=== PATIENT | female | born 1955 | race Caucasian/White ===

== ENCOUNTER → 2017-01-09 | Outpatient (CLI) | payer BC ==
--- NOTE | 2017-01-09 19:51 | CT ---
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 Exam: CT scan of the left femur without contrast. Technique: Axial spiral images were obtained from the level above the left acetabulum through the dis mann left knee without contrast and reconstructed at 2 mm intervals with coronal and sagittal multipla bowen reconstructions performed. Findings: There is mild joint space narrowing in left hip. No fracture or dislocation is seen. There is no periosteal reaction. The surrounding musculature is intact proximal . There is mild linear and irregular stranding in the subcutaneous fat along the anterior aspect of the upper mid thigh anterior ly along the anterior compartment which extends inferiorly along the fascia of the anterior compartme nt extends into the subcutaneous soft tissues and adjacent skin surface inferiorly . No focal fluid c ollection or obvious mass is seen . The underlying deep musculature appears intact and normal density throughout. There is no adenopathy is seen in the inguinal region. The bones are well mineralized wi th no lytic or blastic lesion. There is mild joint space narrowing throughout the knee . Impression: Mild thickening of the underlying muscular fascia and associated linear stranding seen in the adjacen t subcutaneous soft tissues along the upper thigh and extending inferiorly along the anterior compart ment which probably represents postop scarring and/ or edema in the area with no focal fluid collecti on or obvious mass seen. The exam is limited due to the lack of IV contrast . If there is persistent clinical concern for residual or recurrent tumor in the area, suggest a followup study to assure stab ility or MRI with contrast for further characterization of the area. No acute bony abnormality is seen. Reported By:
== END ==
LOC: RAD 14:49
PROVIDERS: ATTEND Internal Medicine
DX: Z85.831 Personal history of malignant neoplasm of soft tissue (principal)
CPT/HCPCS: 73700

== ENCOUNTER 2017-04-22 14:28 | Emergency (ER) | payer BC ==
[2017-04-22 14:35] VITALS: BMI 32.5
[2017-04-22] MEDS ORDERED: NS 1000 ML 1,000 ML ONE ×2 (14:35→18:09)
--- NOTE | 2017-04-22 14:43 | DR.GENAD ---
HPI - PCP Primary Care Physician: ALFA BERMUDEZ - HPI Comment HPI Comment: PATIENT WITH LOW BP IN ED AND SLIGHTLY SLEEPY. SHE WAKE UP AND ANSWER QUESTIONS AND FOLLOW DIRECTION. NO FEVER. BLOOD GLUCOSE WAS NOT LOW. - Complaint/Symptoms Chief Complaint Doctors Comments: SYNCOPAL EPISODE, LOW BP AND DIZZINESS NOTED TODAY. Chief Complaint:: EMS OUT TO PT WITH LOW BS AND UPON ARRIVAL PT GIVEN HONEY AND EMS CHECKED PTS BS AND IT WAS 345,,, PT C/O BEING DIZZY AND HER B/P WAS 90/48.. PT IS DROWSY AND PT STATES SHE TOOK A MUSCLE RELAXE THIS AM.. PT DENIES ANY PAIN PT STATES SHE FELT LIKE SHE WAS GOING TO PASS OUT THIS AM ".. - Nurses notes reviewed Nurses Notes Review: Yes - Source History Provided: Patient, EMS - Mode of Arrival Mode of Arrival: EMS - Timing Onset of Chief Complaint: 04/22/17 Came on: Suddenly - Duration Duration: Since Onset Duration: Minutes - Severity Severity: Moderate PMH - PMH Past Medical History: Yes Past Medical History: Hypertension Past Medical History Comment: FIBRO Past Surgical History: Yes - Family History History of Family Medical Conditions: No - Social History Does patient currently use any type of tobacco product: No Have you used tobacco products in the last 12 months: No Type of Tobacco Use: None Does any household member use tobacco: No Alcohol Use: None Do you use any recreational Drugs:: No Lives Where: Home - infectious screening In the last 2 months have you had wt loss of >10#?: NO Have you had fever, night sweats or hemotysis?: No Have you traveled outside the country in the last 6 months?: No Isolation: Standard ROS - Review of Systems Constitutional: Weakness, Fatigue. negative: Chills, Fever Eyes: negative: Eye Pain, Discharge ENTM: negative: Ear Pain, Nose Discharge, Nose Congestion, Throat Pain Respiratoy: negative: Productive Cough, Non-Productive Cough, Short of Breath, Wheezing, Hemoptysis Cardiovascular: Syncope. negative: Chest Pain, Edema Gastrointestinal/Abdominal: negative: Abdominal Pain, Diarrhea, Nausea, Vomiting Genitourinary: negative: Dysuria, Frequency, Hematuria Neurological: Headache, Weakness, Dizziness Musculoskeletal: Muscle Pain Integumentary: No Symptoms Reported Hematologic/Lymphatic: No Symptoms Reported Endocrine: No Symptoms Reported. negative: Flushing, Increased Thirst, Increased Urine All Other Systems: Reviewed and Negative PE - Vital Signs Vitals: Temperature 96.9 F Pulse Rate [Left Brachial] 80 Pulse Rate 94 Respiratory Rate 16 Blood Pressure [Left Arm] 155/87 Blood Pressure 84/75 O2 Sat by Pulse Oximetry 97 - General Limitations: No Limitations General Appearance: Alert - Head Head Exam: Normal Inspection - Eyes Eye exam: Normal Appearance - ENT ENT Exam: Normal External Ear Exam External Ear Exam: Normal External Inspection TM/Canal Exam: Bilateral Normal Nose Exam: Normal Nose Exam Mouth Exam: Normal Inspection Throat Exam: Normal Inspection - Neck Neck Exam: Trachea Midline - Chest Chest Inspection: Symmetric Chest Wall Rise - Respiratory Respiratory Exam: Normal Lung Sounds Bilat Respiratory Exam: Bilateral Clear to Auscultation - Cardiovascular Cardiovascular Exam: Regular Rate, Normal Rhythm, Normal Heart Sounds - Abdominal Exam Abdominal Exam: Normal Bowel Sounds, Soft. negative: Tenderness - Extremities Extremities Exam: Normal Inspection - Back Back Exam: Normal Inspection - Neurologic Neurological Exam: Alert, Oriented X3, CN II-XII Intact, Other (SLIGHTLY SLEEPY. ). negative: Motor Sensory Deficit - Psychiatric Psychiatric Exam: Normal Affect, Normal Mood - Skin Skin Exam: Dry, Normal Color, Erythema MDM - Additional Information Additional Information Obtained From: Family - Differential Diagnosis Differential Diagnosis: SYNCOPE, HYPOTENSION, DIZZINESS, AMS Course - Treatment Treatment: SEE ORDERS. - Education/Counseling Education/Counseling: Patient, Family, Education Educated On: Diagnosis, Needs for Follow Up ROR - Labs Reviewed Laboratory Results Reviewed?: Yes Result Diagrams: 04/22/17 16:00 04/22/17 16:00 Laboratory: WBC 8.1 X10^3/uL (3.6-10.0) 04/22/17 16:00 RBC 3.95 X10^6/uL (3.5-5.4) 04/22/17 16:00 Hgb 12.1 g/dL (12.0-16.0) 04/22/17 16:00 Hct 35.7 % (36.0-47.0) L 04/22/17 16:00 MCV 90.4 fL (80.0-100.0) 04/22/17 16:00 MCH 30.6 pg (27.0-34.0) 04/22/17 16:00 MCHC 33.8 g/dL (33.0-35.0) 04/22/17 16:00 RDW 12.6 % (11.6-16.5) 04/22/17 16:00 Plt Count 183 X10^3/uL (150.0-450.0) 04/22/17 16:00 MPV 8.7 fL (7.4-11.0) 04/22/17 16:00 Neut % 58.1 % (42.0-75.0) 04/22/17 16:00 Lymph % 29.7 % (21.0-51.0) 04/22/17 16:00 [place] % 11.3 % (0.0-13.0) 04/22/17 16:00 Eos % 0.6 % (0.9-2.9) L 04/22/17 16:00 Baso % 0.3 % (0.2-1.0) 04/22/17 16:00 Neut # 4.7 x10^3/uL (2.2-4.8) 04/22/17 16:00 Lymph # 2.4 X10^3/uL (1.3-2.9) 04/22/17 16:00 [place] # 0.9 x10^3/uL (0.3-0.8) H 04/22/17 16:00 Eos # 0.1 x10^3/uL (0.0-0.2) 04/22/17 16:00 Baso # 0.0 X10^3/uL (0.0-0.1) 04/22/17 16:00 Absolute Nucleated RBC 0.1 /100WBC 04/22/17 16:00 Sodium 142 mmol/L (136-145) 04/22/17 16:00 Corrected Sodium 142 mmol/L (136-145) 04/22/17 16:00 Potassium 3.3 mmol/L (3.5-5.1) L 04/22/17 16:00 Chloride 108 mmol/L (98-107) H 04/22/17 16:00 Carbon Dioxide 23.9 mmol/L (21-32) 04/22/17 16:00 BUN 21 mg/dL (7-18) H 04/22/17 16:00 Creatinine 1.24 mg/dL (0.55-1.02) H 04/22/17 16:00 Est GFR (MDRD) Af Amer 56 (>60) L 04/22/17 16:00 Est GFR (MDRD) Non-Af 47 (>60) L 04/22/17 16:00 Glucose 120 mg/dL (65-99) H 04/22/17 16:00 Calcium 7.6 mg/dL (8.5-10.1) L 04/22/17 16:00 Corrected Calcium 8.6 mg/dL (8.5-10.1) 04/22/17 16:00 Total Bilirubin 0.20 mg/dL (0.2-1.0) 04/22/17 16:00 AST 47 Units/L (15-37) H 04/22/17 16:00 ALT 39 Units/L (12-78) 04/22/17 16:00 Alkaline Phosphatase 46 Units/L (46-116) 04/22/17 16:00 Creatine Kinase 828 Units/L (26-192) H 04/22/17 19:23 CK-MB (CK-2) 10.3 ng/mL (0-4.0) H* 04/22/17 19:23 CK/CKMB % Calc 1.2 % (<4) 04/22/17 19:23 Troponin I < 0.02 ng/mL (0-1.5) 04/22/17 19:23 B-Natriuretic Peptide 7.3 pg/mL (0-79) 04/22/17 16:00 Total Protein 5.8 g/dL (6.4-8.2) L 04/22/17 16:00 Albumin 2.8 g/dL (3.4-5.0) L 04/22/17 16:00 Globulin 3.0 g/dL (2.5-4.5) 04/22/17 16:00 Albumin/Globulin Ratio 0.9 Ratio (1.1-2.1) L 04/22/17 16:00 Acetone, Semi-Quant Negative (NEGATIVE) 04/22/17 16:00 - XRAY XRAY Interpreted by: Radiologist XRAY Findings: REPORT DISCUSS WITH PATIENT. - Diagnosis Discharge Problem: Dizziness Rhabdomyolysis Qualifiers: Rhabdomyolysis type: non-traumatic Qualified Code(s): M62.82 - Rhabdomyolysis Syncope Qualifiers: Syncope type: unspecified Qualified Code(s): R55 - Syncope and collapse Hypotension Qualifiers: Hypotension type: unspecified hypotension type Qualified Code(s): I95.9 - Hypotension, unspecified - Discharge Plan Disposition: 01 HOME, SELF-CARE Condition: Stable - Follow ups/Referrals Follow ups/Referrals: Rigo Antony [Primary Care Provider] - 04/23/17 - Instructions Instructions: Rhabdomyolysis, Hypotension, [id number], Dizziness, Easy-to- Read, Syncope, [id number] Additional Instructions: RETURN TO ED IF WORSE.
[2017-04-22] MEDS ORDERED: NS 1000 ML 1,000 ML IV ONE ×2 (14:58→17:54)
[2017-04-22 16:08] LABS: BASOPHILS % (AUTO) 0.3 % (0.2-1.0); EOSINOPHILS # (AUTO) 0.1 x10^3/uL (0.0-0.2); EOSINOPHILS % (AUTO) 0.6 % (0.9-2.9); HEMATOCRIT 35.7 % (36.0-47.0); HEMOGLOBIN 12.1 g/dL (12.0-16.0); LYMPHOCYTES # (AUTO) 2.4 X10^3/uL (1.3-2.9); LYMPHOCYTES % (AUTO) 29.7 % (21.0-51.0); MEAN CORPUSCULAR HEMOGLOBIN 30.6 pg (27.0-34.0); MEAN CORPUSCULAR HGB CONC 33.8 g/dL (33.0-35.0); MEAN CORPUSCULAR VOLUME 90.4 fL (80.0-100.0); MEAN PLATELET VOLUME 8.7 fL (7.4-11.0); MONOCYTES # (AUTO) 0.9 x10^3/uL (0.3-0.8); MONOCYTES % (AUTO) 11.3 % (0.0-13.0); NEUTROPHILS # (AUTO) 4.7 x10^3/uL (2.2-4.8); NEUTROPHILS % (AUTO) 58.1 % (42.0-75.0); PLATELET COUNT 183 X10^3/uL (150.0-450.0); RED BLOOD COUNT 3.95 X10^6/uL (3.5-5.4); RED CELL DISTRIBUTION WIDTH 12.6 % (11.6-16.5); WHITE BLOOD COUNT 8.1 X10^3/uL (3.6-10.0)
[2017-04-22 16:24] LABS: BLOOD UREA NITROGEN 21 mg/dL (7-18); CALCIUM 7.6 mg/dL (8.5-10.1); CARBON DIOXIDE 23.9 mmol/L (21-32); CHLORIDE 108 mmol/L (98-107); COR NA(FOR HYPERGLY) 142 mmol/L (136-145); CREATININE 1.24 mg/dL (0.55-1.02); SODIUM 142 mmol/L (136-145); TROPONIN I < 0.02 ng/mL (0-1.5); eGFR BLACK RACES 56 (>60); eGFR NON BLACK RACES 47 (>60)
[2017-04-22 16:44] LABS: B-TYPE NATRIURETIC PEPTIDE 7.3 pg/mL (0-79)
[2017-04-22 16:46] LABS: ALANINE AMINOTRANSFERASE 39 Units/L (12-78); ALBUMIN 2.8 g/dL (3.4-5.0); ALKALINE PHOSPHATASE 46 Units/L (46-116); ASPARTATE AMINO TRANSFERASE 47 Units/L (15-37); CKMB % 1.4 % (<4); COR CA(FOR HYPOALB) 8.6 mg/dL (8.5-10.1); CREATINE KINASE 758 Units/L (26-192); TOTAL PROTEIN 5.8 g/dL (6.4-8.2)
[2017-04-22 16:51] LABS: CREATINE KINASE MB 10.5 ng/mL (0-4.0); SERUM ACETONE NEGATIVE (NEGATIVE)
--- NOTE | 2017-04-22 19:24 | CT ---
HISTORY: Hypoglycemia, altered mental status Study: CT brain without contrast Comparison: None Technique: Multiple axial images of the brain were obtained from the skull base to the vertex without administra tion of IV contrast. Automated exposure control (AEC) was utilized to adjust the MA and/or kV accordi ng to patient size. Findings: There is no acute intracranial hemorrhage. The brain parenchyma is normal in density. No mass or ma ss effect. No abnormal extra-axial fluid collection. The ventricles are normal in size, shape and position. Basilar cisterns patent. El matter -white m atter interface is distinct. The bilateral mastoid air cells and included paranasal sinuses are predominantly clear. There is no acute osseous abnormality. IMPRESSION: 1. No acute intracranial process can be identified. Reported By:
[2017-04-22] MEDS ORDERED: POTASSIUM CHLORIDE LIQ 20 MEQ UDC PO ONE (19:30)
[2017-04-22 20:18] LABS: CKMB % 1.2 % (<4); CREATINE KINASE 828 Units/L (26-192); TROPONIN I < 0.02 ng/mL (0-1.5)
[2017-04-22 20:22] LABS: CREATINE KINASE MB 10.3 ng/mL (0-4.0)
[2017-04-22 21:28] VITALS: BP 155/87
== END 2017-04-22 21:15 | disposition home or self-care (01) ==
LOC: ER 14:28
DX: R42 Dizziness and giddiness (principal); M62.82 Rhabdomyolysis; R55 Syncope and collapse; I95.9 Hypotension, unspecified
CPT/HCPCS: 36415; 70450; 80053; 82009; 82550; 82553; 83880; 84484; 85025; 96365; 96367; 99283; 99284; A4222

== ENCOUNTER 2017-09-20 21:45 | Emergency (ER) | payer BC ==
[2017-09-20 21:53] VITALS: BP 186/80; BMI 28.3
== END 2017-09-20 23:30 | disposition left against medical advice (07) ==
LOC: ER 21:56
DX: R10.11 Right upper quadrant pain (principal)
CPT/HCPCS: 99281

== ENCOUNTER 2023-01-01 16:51 | Observation (INO) ==
[2023-01-01] MEDS ORDERED: CONSULT PHARMACY - POTASSIUM & MAGNESIUM XX SCH (19:00)
[2023-01-01] MEDS: NS 1,000 ML IV 1,000 ML IV SCH (19:00)
[2023-01-01] MEDS ORDERED: PEPCID 20 MG VIAL 20 MG in NS 50 ML IV 50 ML IV SCH (19:00)
[2023-01-01 19:16] LABS: BASOPHILS # (AUTO) 0.1 X10^3/uL (0.0-0.1); EOSINOPHILS # (AUTO) 0.1 x10^3/uL (0.0-0.2); EOSINOPHILS % (AUTO) 0.8 % (0.9-2.9); HEMATOCRIT 40.1 % (36.0-47.0); HEMOGLOBIN 13.2 g/dL (12.0-16.0); LYMPHOCYTES # (AUTO) 2.5 X10^3/uL (1.3-2.9); LYMPHOCYTES % (AUTO) 27.8 % (21.0-51.0); MEAN CORPUSCULAR HEMOGLOBIN 29.2 pg (27.0-34.0); MEAN CORPUSCULAR VOLUME 88.4 fL (80.0-100.0); MONOCYTES % (AUTO) 10.7 % (0.0-13.0); NEUTROPHILS # (AUTO) 5.4 x10^3/uL (2.2-4.8); NEUTROPHILS % (AUTO) 59.7 % (42.0-75.0); PLATELET COUNT 259 X10^3/uL (150.0-450.0); RED BLOOD COUNT 4.53 X10^6/uL (3.5-5.4); RED CELL DISTRIBUTION WIDTH 13.5 % (11.6-16.5); WHITE BLOOD COUNT 9.1 X10^3/uL (3.6-10.0)
[2023-01-01 19:24] LABS: ALANINE AMINOTRANSFERASE 48 Units/L (12-78); ALBUMIN 3.8 g/dL (3.4-5.0); ALKALINE PHOSPHATASE 53 Units/L (46-116); AMYLASE 63 Units/L (25-115); ASPARTATE AMINO TRANSFERASE 35 Units/L (15-37); BLOOD UREA NITROGEN 18 mg/dL (7-18); CALCIUM 9.4 mg/dL (8.5-10.1); CARBON DIOXIDE 22.7 mmol/L (21-32); CHLORIDE 100 mmol/L (98-107); CREATININE 1.28 mg/dL (0.55-1.02); GLUCOSE 102 mg/dL (65-99); LIPASE 132 Units/L (73-393); POTASSIUM 3.3 mmol/L (3.5-5.1); SODIUM 138 mmol/L (136-145); TOTAL PROTEIN 7.7 g/dL (6.4-8.2); eGFR NON BLACK RACES 44 (>60)
[2023-01-01] MEDS ORDERED: PROVENTIL NEB TX 0.083% 2.5MG/ 3ML NEB PRN (19:25)
[2023-01-01 20:06] VITALS: BMI 26.7
[2023-01-01] MEDS ORDERED: NS + KCL 40 MEQ/L 1,000 ML IV SCH (21:00)
[2023-01-01] MEDS: MORPHINE SULFATE INJ 2 MG INJ IVP PRN (21:30)
[2023-01-01] MEDS: PROTONIX INJ 40 MG VIAL IVP SCH (21:31)
--- NOTE | 2023-01-01 22:33 | RAD ---
HISTORYAbdominal painSTUDYACUTE ABDOMEN SERIES with chest radiographCOMPARISONCT of the abdomen December 30, 2022FINDINGSMidline trachea. Prominent heart size. The lungs are grossly clear. The bowel gas pattern is nonobstructed. Hiatal hernia is present. No free air.IMPRESSIONNothing acuteElectronically signed by: Mega Basurto (Jan 01, 2023 22:32:27)
[2023-01-02] MEDS: NS 1,000 ML IV 1,000 ML IV SCH (01:38)
[2023-01-02] MEDS ORDERED: TYLENOL 325 MG TAB PO PRN (01:41)
[2023-01-02 05:14] LABS: BASOPHILS % (AUTO) 0.4 % (0.2-1.0); EOSINOPHILS # (AUTO) 0.1 x10^3/uL (0.0-0.2); EOSINOPHILS % (AUTO) 1.2 % (0.9-2.9); HEMATOCRIT 34.1 % (36.0-47.0); HEMOGLOBIN 11.6 g/dL (12.0-16.0); LYMPHOCYTES # (AUTO) 2.2 X10^3/uL (1.3-2.9); LYMPHOCYTES % (AUTO) 28.6 % (21.0-51.0); MEAN CORPUSCULAR HEMOGLOBIN 29.8 pg (27.0-34.0); MEAN CORPUSCULAR VOLUME 87.6 fL (80.0-100.0); MEAN PLATELET VOLUME 9.5 fL (7.4-11.0); MONOCYTES # (AUTO) 0.9 x10^3/uL (0.3-0.8); MONOCYTES % (AUTO) 11.9 % (0.0-13.0); NEUTROPHILS # (AUTO) 4.4 x10^3/uL (2.2-4.8); NEUTROPHILS % (AUTO) 57.9 % (42.0-75.0); PLATELET COUNT 238 X10^3/uL (150.0-450.0); RED CELL DISTRIBUTION WIDTH 13.8 % (11.6-16.5); WHITE BLOOD COUNT 7.6 X10^3/uL (3.6-10.0)
[2023-01-02] MEDS: MORPHINE SULFATE INJ 2 MG INJ IVP PRN (05:18)
[2023-01-02 05:31] LABS: ALANINE AMINOTRANSFERASE 39 Units/L (12-78); ALBUMIN 3.1 g/dL (3.4-5.0); ALKALINE PHOSPHATASE 44 Units/L (46-116); ASPARTATE AMINO TRANSFERASE 24 Units/L (15-37); BLOOD UREA NITROGEN 16 mg/dL (7-18); CALCIUM 8.5 mg/dL (8.5-10.1); CARBON DIOXIDE 22.8 mmol/L (21-32); CHLORIDE 106 mmol/L (98-107); COR CA(FOR HYPOALB) 9.2 mg/dL (8.5-10.1); CREATININE 1.07 mg/dL (0.55-1.02); GLUCOSE 79 mg/dL (65-99); POTASSIUM 3.6 mmol/L (3.5-5.1); SODIUM 141 mmol/L (136-145); TOTAL PROTEIN 6.3 g/dL (6.4-8.2); eGFR NON BLACK RACES 54 (>60)
[2023-01-02] MEDS ORDERED: CONSULT PHARMACY - POTASSIUM & MAGNESIUM XX SCH (07:00)
[2023-01-02] MEDS: NS + KCL 20 MEQ/L 1,000 ML with MAGNESIUM SULFATE 50% INJ VIAL 1 G IV SCH ×4 (08:14→20:51)
[2023-01-02] MEDS: PEPCID 20 MG VIAL 20 MG in NS 50 ML IV 50 ML IV SCH (08:14)
[2023-01-02] MEDS: PROTONIX INJ 40 MG VIAL IVP SCH ×2 (08:15→20:46)
[2023-01-02] MEDS ORDERED: VOLTAREN 1 % GEL MULTI DOSE TUBE TOP PRN (08:56)
[2023-01-02] MEDS ORDERED: ZOFRAN TAB 4 MG PO PRN (08:56)
[2023-01-02] MEDS ORDERED: VENTOLIN or PROAIR HFA IN PRN (08:56)
[2023-01-02] MEDS ORDERED: TYLENOL #3 TAB (W/CODEINE) PO PRN (08:56)
[2023-01-02] MEDS ORDERED: PATIENT'S HOME MEDICATION (Fluticasone-Umeclidin-Vilanter [Trelegy Ellipta] 100-62.5-25 mc IN SCH (09:00)
[2023-01-02] MEDS ORDERED: K-DUR TAB 20 MEQ PO SCH (09:00)
[2023-01-02] MEDS ORDERED: MAG-OX TAB PO SCH (09:00)
[2023-01-02] MEDS ORDERED: PERCOCET TAB 5/325 MG PO PRN (10:21)
[2023-01-02] MEDS: LOPRESSOR TAB 50 MG PO SCH ×2 (10:30→20:46)
[2023-01-02] MEDS: COZAAR PO SCH (10:30)
[2023-01-02] MEDS: NEURONTIN CAP 400 MG PO SCH ×4 (10:31→20:45)
[2023-01-02] MEDS: HYDROCHLOROTHIAZIDE 25 MG TAB PO SCH (10:31)
[2023-01-02] MEDS: SYNTHROID 50 mcg TAB PO SCH (10:31)
[2023-01-02] MEDS: LOVENOX INJ 40 MG SYR SC SCH (10:32)
[2023-01-02] MEDS: MIRALAX POWDER (1 DOSE 17 G) PO SCH (10:32)
[2023-01-02 10:45] LABS: BILIRUBIN,URINE NEGATIVE (NEGATIVE); BLOOD/HEMOGLOBIN,URINE NEGATIVE (NEGATIVE); GLUCOSE, URINE NEGATIVE (NEGATIVE); KETONES,URINE 3+ (NEGATIVE); LEUKOCYTE ESTERASE ,URINE NEGATIVE (NEGATIVE); NITRITES,URINE NEGATIVE (NEGATIVE); PROTEIN,URINE NEGATIVE (NEGATIVE); UROBILINOGEN,URINE NORMAL (NORMAL)
[2023-01-02 10:47] LABS: APPEARANCE,URINE CLEAR (CLEAR); COLOR,URINE YELLOW (YELLOW)
--- NOTE | 2023-01-02 12:22 | DR.UPDATE ---
H&P Update Prescription drug monitoring program results: PDMP reviewed and no concerns identified H&P Reviewed: Yes Any changes to H&P?: Yes Changes noted:: WAS ADMITTED TO THE HOSPITAL, OBSERVATION STATUS, FOR FURTHER EVALUATION AND TREATMENT OF INTRACTABLE ABDOMINAL PAIN. SHE HAS BEEN TO THE ER TWICE SINCE 12/19/22. ON 12/30/22, AN ABDOMEN/PELVIS CT WITHOUT CONTRAST WAS OBTAINED AND REVEALED: The moderate-sized central sliding hiatal hernia is noted to be present. Otherwise, unremarkable evaluation of the abdomen and pelvis without contrast. SHE DENIES IMPROVEMENT IN SYMPTOMS SINCE HER LAST ER VISIT. ON ARRIVAL TO THE HOSPITAL, HER VITALS WERE: 98.3-80-15-97%-183/83. LABS WERE OBTAINED. WBC 9.1, RBC 4.53, HGB 13.2, HCT 40.1, PLT COUNT 259, SODIUM 138, POTASSIUM 3.3, CHLORIDE 100, CARBON DIOXIDE 22.7, BUN 18, CREATININE 1.28, GLUCOSE 102, CALCIUM 9.4, MAGNESIUM 1.8, TOTAL BILI 0.40, AST 35, ALT 48, ALK PHOS 53, TOTAL PROTEIN 7.7, ALBUMIN 3.8, AMYLASE 63, LIPASE 132. A URINALYSIS WAS OBTAINED AND WAS UNREMARKABLE. A URINE CULTURE WAS SET UP. AN ABDOMEN XRAY WAS OBTAINED AND WAS UNREMARKABLE. SHE WAS STARTED ON NORMAL SALINE WITH POTASSIUM AND MAGNESIUM AT 80 ML/HR, PEPCID 20MG DAILY, PROTONIX 40MG IV BID, LOVENOX 40MG SC DAILY, AND MORPHINE SULFATE 2MG IV Q4H PRN PAIN. HER HOME MEDICATIONS OF TYLENOL WITH CODEINE, PROAIR INHALER, VOLTAREN GEL, NEURONTIN, HCTZ, SYNTHROID, COZAAR, MECLIZINE, LOPRESSOR, ZOFRAN, PERCOCET, MIRALAX, POTASSIUM CHLORIDE, CARAFATE, AND ZANAFLEX WERE RESUMED. WE WILL CONSULT , GENERAL SURGEON. OTHERWISE, WE WILL FOLLOW UP WITH AM LABS AND CONTINUE TO MONITOR. TIME SPENT ON CLINICAL ASSESSMENT, REVIEWING LABS AND IMAGING, DECISION MAKING, AND DOCUMENTATION GREATER THAN 75 MINUTES. Patient was examined?: Yes
[2023-01-02] MEDS: CARAFATE PO SCH ×3 (12:53→20:46)
[2023-01-02] MEDS: ZANAFLEX PO SCH (20:45)
[2023-01-02] MEDS: ANTIVERT TAB 25 MG PO SCH (20:46)
[2023-01-02] MEDS: LIPITOR TAB 10 MG PO SCH (20:46)
[2023-01-02] MEDS: PULMICORT NEB TX 0.5 MG NEB SCH (21:40)
[2023-01-02] MEDS: DUONEB 0.5 MG/3 MG (3 mL) NEB SCH (21:40)
[2023-01-03] MEDS: NS + KCL 20 MEQ/L 1,000 ML with MAGNESIUM SULFATE 50% INJ VIAL 1 G IV SCH ×6 (03:10→21:01)
[2023-01-03 05:06] LABS: BASOPHILS % (AUTO) 0.6 % (0.2-1.0); EOSINOPHILS # (AUTO) 0.2 x10^3/uL (0.0-0.2); EOSINOPHILS % (AUTO) 2.4 % (0.9-2.9); HEMATOCRIT 32.7 % (36.0-47.0); HEMOGLOBIN 11.1 g/dL (12.0-16.0); LYMPHOCYTES # (AUTO) 2.1 X10^3/uL (1.3-2.9); LYMPHOCYTES % (AUTO) 31.4 % (21.0-51.0); MEAN CORPUSCULAR HEMOGLOBIN 29.8 pg (27.0-34.0); MEAN CORPUSCULAR HGB CONC 33.9 g/dL (33.0-35.0); MEAN CORPUSCULAR VOLUME 88.1 fL (80.0-100.0); MONOCYTES # (AUTO) 0.8 x10^3/uL (0.3-0.8); MONOCYTES % (AUTO) 12.1 % (0.0-13.0); NEUTROPHILS # (AUTO) 3.6 x10^3/uL (2.2-4.8); NEUTROPHILS % (AUTO) 53.5 % (42.0-75.0); PLATELET COUNT 227 X10^3/uL (150.0-450.0); RED BLOOD COUNT 3.71 X10^6/uL (3.5-5.4); RED CELL DISTRIBUTION WIDTH 13.5 % (11.6-16.5); WHITE BLOOD COUNT 6.8 X10^3/uL (3.6-10.0)
[2023-01-03 05:19] LABS: ALANINE AMINOTRANSFERASE 32 Units/L (12-78); ALBUMIN 2.8 g/dL (3.4-5.0); ALKALINE PHOSPHATASE 39 Units/L (46-116); ASPARTATE AMINO TRANSFERASE 19 Units/L (15-37); BLOOD UREA NITROGEN 10 mg/dL (7-18); CALCIUM 8.6 mg/dL (8.5-10.1); CARBON DIOXIDE 25.6 mmol/L (21-32); CHLORIDE 108 mmol/L (98-107); COR CA(FOR HYPOALB) 9.6 mg/dL (8.5-10.1); CREATININE 0.95 mg/dL (0.55-1.02); GLUCOSE 80 mg/dL (65-99); MAGNESIUM 2.2 mg/dL (2.0-2.9); SODIUM 141 mmol/L (136-145); TOTAL PROTEIN 5.9 g/dL (6.4-8.2); eGFR NON BLACK RACES > 60 (>60)
[2023-01-03] MEDS: CARAFATE PO SCH ×4 (05:34→21:05)
[2023-01-03] MEDS: DUONEB 0.5 MG/3 MG (3 mL) NEB SCH ×4 (08:31→21:29)
[2023-01-03] MEDS: PULMICORT NEB TX 0.5 MG NEB SCH ×2 (08:31→21:29)
[2023-01-03] MEDS ORDERED: MICRO K EXTEN CAP 10 MEQ PO SCH (09:00)
--- NOTE | 2023-01-03 10:13 | US ---
HISTORYAbdominal painSTUDYGallbladder sonogramTechnique: Multiple grayscale sonographic images were obtained.COMPARISONNoneFINDINGSLiver is normal in size and configuration without cyst, mass, or biliary ductal dilatation. Portal blood flow was hepatopetal. Hepatic artery was patent. Hepatic venous blood flow hepatofugal. No gallstones identified within the gallbladder. Gallbladder wall thickness was normal. Common duct measured 3.4 mm. Right kidney measured 10.7 cm in length. No hydronephrosis, stones, masses, or perinephric fluid collections identified. Head and body of the pancreas appear normal. Tail was obscured by overlying bowel gas.IMPRESSIONNo evidence for cholelithiasis or cholecystitisNo significant abnormality identifiedElectronically signed by: JEAN-PIERRE SHERWOOD (Jan 03, 2023 10:11:46)
[2023-01-03] MEDS: LOPRESSOR TAB 50 MG PO SCH ×2 (10:18→21:05)
[2023-01-03] MEDS: NEURONTIN CAP 400 MG PO SCH ×4 (10:18→21:05)
[2023-01-03] MEDS: MIRALAX POWDER (1 DOSE 17 G) PO SCH (10:18)
[2023-01-03] MEDS: SYNTHROID 50 mcg TAB PO SCH (10:19)
[2023-01-03] MEDS: LOVENOX INJ 40 MG SYR SC SCH (10:19)
[2023-01-03] MEDS: HYDROCHLOROTHIAZIDE 25 MG TAB PO SCH (10:19)
[2023-01-03] MEDS: COZAAR PO SCH (10:19)
[2023-01-03] MEDS: PROTONIX INJ 40 MG VIAL IVP SCH ×2 (10:20→21:06)
[2023-01-03] MEDS: PEPCID 20 MG VIAL 20 MG in NS 50 ML IV 50 ML IV SCH (10:20)
--- NOTE | 2023-01-03 10:37 | DR.PROGNOT ---
HOSPITAL PROGRESS NOTE Progress Note for Day of: Progress Note Date: 01/03/23 Chief Complaint Chief Complaint: still epigastric pain, no nausea or vomiting. BUN/creatinine and electrolytes were normal. EGD was postponed because of the weather.. Past Medical Family Social History Past Med/Fam/Surg Hx: No changes since H&P Allergies: Allergies amitriptyline Allergy (Verified 12/30/22 13:17) tramadol Allergy (Verified 12/30/22 13:17) Vital Signs Vital Signs: Vital Signs Temperature 98.4 F Pulse Rate 69 Pulse Rate 59 Respiratory Rate 20 Blood Pressure 93/51 O2 Sat by Pulse Oximetry 98 Physical Exam Oriented: Normal Respiratory: Normal Cardiovascular: Normal GI:Auscultation: Other (Abdomen is soft flat with epigastric tenderness which is mild to moderate, bowel sounds present.) Speech Pattern: Clear and Appropriate Laboratory and Diagnostics 01/03/23 04:31 01/03/23 04:31 Labs: 01/02/23 10:20 Urine,Clean Catch Urine Culture - Preliminary Laboratory WBC 6.8 X10^3/uL (3.6-10.0) 01/03/23 04:31 RBC 3.71 X10^6/uL (3.5-5.4) 01/03/23 04:31 Hgb 11.1 g/dL (12.0-16.0) L 01/03/23 04:31 Hct 32.7 % (36.0-47.0) L 01/03/23 04:31 MCV 88.1 fL (80.0-100.0) 01/03/23 04:31 MCH 29.8 pg (27.0-34.0) 01/03/23 04:31 MCHC 33.9 g/dL (33.0-35.0) 01/03/23 04:31 RDW 13.5 % (11.6-16.5) 01/03/23 04:31 Plt Count 227 X10^3/uL (150.0-450.0) 01/03/23 04:31 MPV 9.0 fL (7.4-11.0) 01/03/23 04:31 Neut % (Auto) 53.5 % (42.0-75.0) 01/03/23 04:31 Lymph % (Auto) 31.4 % (21.0-51.0) 01/03/23 04:31 [place] % (Auto) 12.1 % (0.0-13.0) 01/03/23 04:31 Eos % (Auto) 2.4 % (0.9-2.9) 01/03/23 04:31 Baso % (Auto) 0.6 % (0.2-1.0) 01/03/23 04:31 Neut # (Auto) 3.6 x10^3/uL (2.2-4.8) 01/03/23 04:31 Lymph # (Auto) 2.1 X10^3/uL (1.3-2.9) 01/03/23 04:31 [place] # (Auto) 0.8 x10^3/uL (0.3-0.8) 01/03/23 04:31 Eos # (Auto) 0.2 x10^3/uL (0.0-0.2) 01/03/23 04:31 Baso # (Auto) 0.0 X10^3/uL (0.0-0.1) 01/03/23 04:31 Absolute Nucleated RBC 0.0 /100WBC 01/03/23 04:31 Sodium 141 mmol/L (136-145) 01/03/23 04:31 Corrected Sodium TNP 01/03/23 04:31 Potassium 4.0 mmol/L (3.5-5.1) 01/03/23 04:31 Chloride 108 mmol/L (98-107) H 01/03/23 04:31 Carbon Dioxide 25.6 mmol/L (21-32) 01/03/23 04:31 BUN 10 mg/dL (7-18) 01/03/23 04:31 Creatinine 0.95 mg/dL (0.55-1.02) 01/03/23 04:31 Est GFR (MDRD) Af Amer > 60 (>60) 01/03/23 04:31 Est GFR (MDRD) Non-Af > 60 (>60) 01/03/23 04:31 Glucose 80 mg/dL (65-99) 01/03/23 04:31 Calcium 8.6 mg/dL (8.5-10.1) 01/03/23 04:31 Corrected Calcium 9.6 mg/dL (8.5-10.1) 01/03/23 04:31 Magnesium 2.2 mg/dL (2.0-2.9) 01/03/23 04:31 Total Bilirubin 0.30 mg/dL (0.2-1.0) 01/03/23 04:31 AST 19 Units/L (15-37) 01/03/23 04:31 ALT 32 Units/L (12-78) 01/03/23 04:31 Alkaline Phosphatase 39 Units/L (46-116) L 01/03/23 04:31 Total Protein 5.9 g/dL (6.4-8.2) L 01/03/23 04:31 Albumin 2.8 g/dL (3.4-5.0) L 01/03/23 04:31 Globulin 3.1 g/dL (2.5-4.5) 01/03/23 04:31 Albumin/Globulin Ratio 0.9 Ratio (1.1-2.1) L 01/03/23 04:31 Amylase 63 Units/L (25-115) 01/01/23 19:00 Lipase 132 Units/L (73-393) 01/01/23 19:00 Specimen Type Clean catch urine 01/02/23 10:20 Urine Color Yellow (YELLOW) 01/02/23 10:20 Urine Appearance Clear (CLEAR) 01/02/23 10:20 Urine pH 5.0 (5.0 - 8.0) 01/02/23 10:20 Ur Specific [place] 1.025 (1.000-1.030) 01/02/23 10:20 Urine Protein Negative (NEGATIVE) 01/02/23 10:20 Urine Glucose (UA) Negative (NEGATIVE) 01/02/23 10:20 Urine Ketones 3+ (NEGATIVE) 01/02/23 10:20 Urine Blood Negative (NEGATIVE) 01/02/23 10:20 Urine Nitrite Negative (NEGATIVE) 01/02/23 10:20 Urine Bilirubin Negative (NEGATIVE) 01/02/23 10:20 Urine Urobilinogen Normal (NORMAL) 01/02/23 10:20 Ur Leukocyte Esterase Negative (NEGATIVE) 01/02/23 10:20 Assessment and Plan 1: Abdominal pain rule out peptic ulcer disease. For EGD this week.
[2023-01-03] MEDS: ANTIVERT TAB 25 MG PO SCH (21:04)
[2023-01-03] MEDS: LIPITOR TAB 10 MG PO SCH (21:05)
[2023-01-03] MEDS: ZANAFLEX PO SCH (21:06)
[2023-01-04] MEDS: CARAFATE PO SCH ×2 (05:31→12:22)
[2023-01-04 06:01] LABS: BASOPHILS % (AUTO) 0.6 % (0.2-1.0); EOSINOPHILS # (AUTO) 0.2 x10^3/uL (0.0-0.2); EOSINOPHILS % (AUTO) 3.2 % (0.9-2.9); HEMATOCRIT 33.6 % (36.0-47.0); HEMOGLOBIN 11.2 g/dL (12.0-16.0); LYMPHOCYTES # (AUTO) 2.7 X10^3/uL (1.3-2.9); LYMPHOCYTES % (AUTO) 41.9 % (21.0-51.0); MEAN CORPUSCULAR HEMOGLOBIN 29.6 pg (27.0-34.0); MEAN CORPUSCULAR HGB CONC 33.4 g/dL (33.0-35.0); MEAN CORPUSCULAR VOLUME 88.6 fL (80.0-100.0); MEAN PLATELET VOLUME 9.2 fL (7.4-11.0); MONOCYTES # (AUTO) 0.9 x10^3/uL (0.3-0.8); MONOCYTES % (AUTO) 13.6 % (0.0-13.0); NEUTROPHILS # (AUTO) 2.6 x10^3/uL (2.2-4.8); NEUTROPHILS % (AUTO) 40.7 % (42.0-75.0); PLATELET COUNT 247 X10^3/uL (150.0-450.0); RED BLOOD COUNT 3.79 X10^6/uL (3.5-5.4); RED CELL DISTRIBUTION WIDTH 13.8 % (11.6-16.5); WHITE BLOOD COUNT 6.4 X10^3/uL (3.6-10.0)
[2023-01-04 06:17] LABS: ALANINE AMINOTRANSFERASE 27 Units/L (12-78); ALBUMIN 2.9 g/dL (3.4-5.0); ALKALINE PHOSPHATASE 41 Units/L (46-116); ASPARTATE AMINO TRANSFERASE 15 Units/L (15-37); BLOOD UREA NITROGEN 9 mg/dL (7-18); CALCIUM 8.7 mg/dL (8.5-10.1); CARBON DIOXIDE 26.6 mmol/L (21-32); CHLORIDE 110 mmol/L (98-107); COR CA(FOR HYPOALB) 9.6 mg/dL (8.5-10.1); CREATININE 1.13 mg/dL (0.55-1.02); GLUCOSE 88 mg/dL (65-99); POTASSIUM 4.3 mmol/L (3.5-5.1); SODIUM 144 mmol/L (136-145); TOTAL PROTEIN 6.1 g/dL (6.4-8.2); eGFR NON BLACK RACES 51 (>60)
[2023-01-04] MEDS: COZAAR PO SCH (08:54)
[2023-01-04] MEDS: LOVENOX INJ 40 MG SYR SC SCH (08:54)
[2023-01-04] MEDS: HYDROCHLOROTHIAZIDE 25 MG TAB PO SCH (08:54)
[2023-01-04] MEDS: LOPRESSOR TAB 50 MG PO SCH (08:54)
[2023-01-04] MEDS: MIRALAX POWDER (1 DOSE 17 G) PO SCH (08:55)
[2023-01-04] MEDS: NEURONTIN CAP 400 MG PO SCH ×2 (08:55→13:30)
[2023-01-04] MEDS: PROTONIX INJ 40 MG VIAL IVP SCH (08:55)
[2023-01-04] MEDS: PEPCID 20 MG VIAL 20 MG in NS 50 ML IV 50 ML IV SCH (08:55)
[2023-01-04] MEDS: SYNTHROID 50 mcg TAB PO SCH (08:55)
[2023-01-04] MEDS: PULMICORT NEB TX 0.5 MG NEB SCH (08:59)
[2023-01-04] MEDS: DUONEB 0.5 MG/3 MG (3 mL) NEB SCH (08:59)
[2023-01-04] MEDS: NS + KCL 20 MEQ/L 1,000 ML with MAGNESIUM SULFATE 50% INJ VIAL 1 G IV SCH ×2 (10:29)
[2023-01-04] MEDS ORDERED: TORADOL 30 MG VIAL IVP ONE (10:40)
[2023-01-04] MEDS ORDERED: NS 1,000 ML IV 1,000 ML ONE (11:50)
[2023-01-04 11:54] VITALS: TEMP 97.9
[2023-01-04] MEDS ORDERED: DIPRIVAN VIAL 20 ML ONE (12:15)
[2023-01-04] MEDS: MORPHINE SULFATE INJ 2 MG INJ IVP PRN (13:39)
[2023-01-04 13:51] VITALS: O2SAT 98
[2023-01-04 13:52] VITALS: BP 165/75; PULSE 76; RESP 19
[2023-01-04] MEDS ORDERED: REGLAN TAB 10 MG PO SCH (14:00)
== END 2023-01-04 14:20 | disposition home or self-care (01) ==
LOC: ICU → MED/SURG 01-03 14:16
PROVIDERS: ADMIT Internal Medicine; ATTEND Internal Medicine
DX: K31.84 Gastroparesis; R10.13 Epigastric pain; E87.6 Hypokalemia; R10.84 Generalized abdominal pain; I10 Essential (primary) hypertension; K29.00 Acute gastritis without bleeding; E78.2 Mixed hyperlipidemia; R63.4 Abnormal weight loss; E83.42 Hypomagnesemia; K21.9 Gastro-esophageal reflux disease without esophagitis; E11.9 Type 2 diabetes mellitus without complications; M79.7 Fibromyalgia; K44.9 Diaphragmatic hernia without obstruction or gangrene; J44.9 Chronic obstructive pulmonary disease, unspecified; Z79.899 Other long term (current) drug therapy; M51.16 Intervertebral disc disorders with radiculopathy, lumbar region